=== PATIENT | male | born 2000 | race African-American/Black ===

== ENCOUNTER 2021-10-16 14:48 | Emergency (ER) | payer OTHER ==
[~2021-10-16] VITALS: Ht 185 cm; Wt 107.0 kg
--- NOTE | 2021-10-16 15:00 | ED Lower Extremity ---
General Chief Complaint: Lower Extremity Stated Complaint: FELL,RT ANKLE PAIN History of Present Illness Date Seen by Provider: Oct 16, 2021 Time Seen by Provider: 14:56 Initial Comments 20-year-old male is here with complaints of right ankle pain and swelling after he fell and twisted his ankle yesterday evening while playing basketball. Denies sensory loss, head strike, LOC. Patient is able to ambulate with pain. Pt states he took Ibuprofen which helps with the pain. Allergies and Home Medications Allergies Coded Allergies: No Known Drug Allergies (Unverified , 10/16/21) Patient Home Medication List Home Medication List Reviewed: Yes Review of Systems Constitutional: no symptoms reported EENTM: no symptoms reported Respiratory: no symptoms reported Cardiovascular: no symptoms reported Gastrointestinal: no symptoms reported Genitourinary: no symptoms reported Musculoskeletal: joint pain, joint swelling, other (RIGHT ANKLE:) Skin: no symptoms reported Psychiatric/Neurological: No Symptoms Reported Physical Exam Vital Signs Vital Signs - First Documented 10/16/21 14:50 Temp 35.8 Pulse 78 Resp 18 B/P (MAP) 154/ Pulse Ox 100 O2 Delivery Room Air Capillary Refill : Height, Weight, BMI Height: '" Weight: lbs. oz. kg; BMI Method: General Appearance: WD/WN, no apparent distress HEENT: PERRL/EOMI Back: normal inspection, no vertebral tenderness Ankles: right ankle normal inspection (1. INSPECTION:), right ankle normal range of motion, right ankle pain, right ankle soft tissue tenderness, right ankle swelling Neurologic/Psychiatric: no motor/sensory deficits, alert, normal mood/affect, oriented x 3 Skin: normal color Progress/Results/Core Measures Results/Orders My Orders Orders - WENDI KIRKPATRICK MD Ankle 3 View Right (10/16/21 15:01) Vital Signs/I&O 10/16/21 14:50 Temp 35.8 Pulse 78 Resp 18 B/P (MAP) 154/ Pulse Ox 100 O2 Delivery Room Air Progress Progress Note : Progress Note 1. RIGHT ANKLE SPRAIN - XR RIGHT ANKLE: no fracture - Ice/ NSAID/ TABITHA bandage/ crutches - F/u with Ortho clinic if pain persists or does not resolve Diagnostic Imaging Diagonstic Imaging: Xray Plain Films/CT/US/NM/MRI: ankle Comments [place] NAME: NICOLAS RAMOS REC#: [id number] PT STATUS: REG ER : 2000 PHYSICIAN: WENDI KIRKPATRICK MD ADMIT DATE: 10/16/21/ER FS Draft Date of Exam:10/16/21 ANKLE 3 VIEW RIGHT INDICATION: Ankle pain and swelling. COMPARISON: None. FINDINGS: Three views of the right ankle were obtained. There is no acute fracture or dislocation. No focal osseous lesions are seen. The surrounding soft tissue structures are unremarkable. There are no radiopaque foreign bodies. IMPRESSION: No acute fracture or dislocation in the right ankle. Dictated on workstation # [id number] Dict: 10/16/21 1509 Trans: 10/16/21 1512 [id number] Interpreted by: ABRBARA JONES MD Electronically signed by: Departure Impression Primary Impression: Right ankle sprain Qualified Codes: S93.401A - Sprain of unspecified ligament of right ankle, initial encounter Disposition: 01 HOME, SELF-CARE Condition: Stable Departure-Patient Inst. Referrals: NO,LOCAL PHYSICIAN (PCP/Family) Primary Care Physician Patient Instructions: Ankle Sprain ED, Using Cold for Pain Add. Discharge Instructions: Ibuprofen and ice - Crutches - If pain does not resolve in 2 to 3 days, make Ortho appointment All discharge instructions reviewed with patient and/or family. Voiced understanding. WENDI KIRKPATRICK MD Oct 16, 2021 15:00
--- NOTE | 2021-10-16 15:13 | Diagnostic Imaging Report ---
INDICATION: Ankle pain and swelling. COMPARISON: None. FINDINGS: Three views of the right ankle were obtained. There is no acute fracture or dislocation. No focal osseous lesions are seen. The surrounding soft tissue structures are unremarkable. There are no radiopaque foreign bodies. IMPRESSION: No acute fracture or dislocation in the right ankle. Dictated by: Dictated on workstation # [id number]
[2021-10-16 15:41] VITALS: BP 125/68
== END 2021-10-16 15:42 | disposition home or self-care (01) ==
LOC: ER FS 14:51
DX: S93.401A Sprain of unspecified ligament of right ankle, initial encounter (principal); X50.1XXA Overexertion from prolonged static or awkward postures, initial encounter
CPT/HCPCS: 73610